=== PATIENT | male | born 1980 ===

== ENCOUNTER 2021-12-13 07:52 | Observation (INO) ==
--- NOTE | 2021-12-06 13:40 | Anesthesiology Consultation ---
Date of Service December 06, 2021 Assessment & Plan (1) Encounter for pre-operative examination: Chart Review Chart Review: Acceptable Risk for Surgery History Surgery Operation Date: 12/13/21 10:40 Proposed Procedures p Right Ankle Open Reduction Internal Fixation with Lateral Malleolus Non Union, Possible Excision Right Knee Bone Graft - Cleve Norton MD Height/Weight Height: 5 ft 9 in Weight: 94.347 kg Allergies Allergy/AdvReac Type Severity Reaction Status Date / Time bee venom protein (honey bee) Allergy Unknown Verified 11/30/21 14:56 No Known Drug Allergies Allergy Verified 11/30/21 14:56 Medications Home Medications Medication Instructions Recorded Confirmed Last Taken calcium polycarbophil 625 mg 625 mg PO QAM 11/30/21 11/30/21 Unknown tablet (Fiber Laxative (calcium polycarbophil)) cholecalciferol (vitamin D3) 25 25 mcg PO QAM 11/30/21 11/30/21 Unknown mcg (1,000 unit) tablet (Vitamin D3) diclofenac sodium 100 mg 100 mg PO BID 11/30/21 11/30/21 Unknown tablet,extended release 24 hr cjtiylkg-sxnozmjbjlh-pzugk 1 applic topical QAM 11/30/21 11/30/21 Unknown petrolatum topical cream (Cetaphil Moisturizing topical cream) naproxen 500 mg tablet 500 mg PO BID PRN Pain 11/30/21 11/30/21 Unknown paraben-cetyl alcohol-stearyl 1 applic topical QAM 11/30/21 11/30/21 Unknown alcohol-propy glycol-sls topical overhead cleaner maintainer (Cetaphil Gentle Cleanser topical cleanser) Past Medical History Medical History Ankle pain Constipation Dermatitis HCV (hepatitis C virus) Low back pain Past Surgical History Surgical History Surgical history unknown Social History Smoking Status: Unknown if ever smoked
[~2021-12-13 07:52] MED LIST: LACTATED RINGER'S 1,000 ML IV SCH; ceFAZolin 2000MG 2,000 MG/15 ML SYR IV SCH
[2021-12-13] MEDS ORDERED: ROPIVACAINE 0.5% 5 MG/ML 30 ML VIAL ONE (07:59)
[2021-12-13] MEDS ORDERED: MIDAZOLAM HCL 1 MG/ML 2ML VIAL ONE ×2 (09:20)
[2021-12-13] MEDS ORDERED: fentaNYL citrate 100 MCG/2 ML VIAL ONE ×2 (09:20→10:48)
[2021-12-13] MEDS ORDERED: ATROPINE SULFATE 0.1 MG/ML 10ML SYR IV PRN (09:36)
[2021-12-13] MEDS ORDERED: ePHEDrine sulfate 50 MG/ML AMP IV PRN (09:36)
[2021-12-13] MEDS ORDERED: ONDANSETRON INJ 2 MG/ML 2 ML VIAL IV PRN ×2 (09:36→14:02)
--- NOTE | 2021-12-13 09:47 | History & Physical Bridge Note ---
Date of Service December 13, 2021 History & Physical Bridge Note I have examined the patient, reviewed the History & Physical and in the interval since the performance of the History & Physical I have noted the following changes of clinical significance: no changes noted
[2021-12-13] MEDS ORDERED: BUPIVACAINE 0.5 % 5 MG/1 ML MPF 30ML VIAL ONE (10:12)
[2021-12-13] MEDS ORDERED: LIDOCAINE 1%/EPINEPHRINE 1:100,000 50 ML VIAL ONE (10:13)
[2021-12-13] MEDS ORDERED: ONDANSETRON INJ 2 MG/ML 2 ML VIAL ONE (10:47)
[2021-12-13] MEDS ORDERED: PROPOFOL IV EMULSION 10 MG/ML 20 ML VIAL IV ONE (10:47)
[2021-12-13] MEDS ORDERED: DEXAMETHASONE SOD INJ 4 MG/ML VIAL ONE (10:47)
[2021-12-13] MEDS ORDERED: GELATIN SPONGE 12-7MM ONE (11:49)
--- NOTE | 2021-12-13 13:08 | Operative Report ---
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 Post-Op Diagnosis: same I identified the patient and participated in the time-out.: Yes Procedure Operation Date: 12/13/21 10:20 Actual Procedures p Right Ankle Open Reduction Internal Fixation Lateral Malleolus Non-Union(Righ t) - Cleve Norton MD s Autograft Right Iliac Crest(Right) - Cleve Norton MD Surgeon Cleve Norton MD Cathodic Protection Technician Monica Schmidt no resident or fellow available Estimated Blood Loss 20 Findings Consistent with Post-Op Diagnosis Specimens Debrided nonunion Anesthesia Type General Regional Complications none Disposition Accompanied Patient To Recovery: No Disposition: Recovery Room Indications Patient is 41. He is 1 year status post a right distal fibular Chairez a type fracture. The fracture is not healed. He is vitamin D deficient with a head which has been addressed. 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 He is elected to proceed with open reduction internal fixation with bone grafting. He has a nickel allergy and titanium implants will be used. Description of Procedure Informed consent obtained. Patient identified. He identified the operative site as the right ankle the right knee and the right iliac crest which I marked with my initials. A preoperative surgical timeout performed. A preop dose of IV antibiotics was given he was taken to the OR positioned supine on the OR table with a bump under the right hip. Bone foam under the right leg. The righ t lower extremity up to the lower abdomen was prepped and draped in usual sterile fashion. DVT prophylaxis with mechanical devices and postoperatively early mobility and aspirin. The leg was prescribed and prepped and draped in usual sterile fashion. A sterile tourniquet was applied below the peroneal nerve at the fibular neck. The limb was exsanguinated with the Esmarch and tourniquet inflated 250 mmHg. Fluoroscopic guidance was utilized throughout the case. A 10 cm incision over the distal fibula was made. Blunt dissection was performed proximally down to the level of the periosteum and then the periosteum was elevated only as much as necessary to apply the plate. At the site of the fracture nonunion which is readily identified is an area of softness at the distal fibula I exposed anterior and posterior to the margins of the bone and identified the peroneal tendons posteriorly. I debrided the nonunion with rongeur and curette. This yielded a defect which was measured initially at 5 to 6 mm wide about 20 to 25 mm anterior to posterior and had a depth of approximately 12 mm. It tapered down to a width of about 3 mm medially. I debrided back to what appeared to be healthy proximally and distally. I then took a 1.25 mm K wire and made multiple perforations proximally and distally in the nonunion site. The nonunion tissue which looked to be dense fibrous scar tissue was sent for pathology. There was no fluid or evidence of infection. The bone otherwise seem to be healthy. After debriding thoroughly and preparing the nonunion site the tourniquet was let down after about 30 minutes of inflation. There was good bleeding from all the bony surfaces except for the anterior one quarter of the distal fragment. I did not violate the medial cortex in order to leave the cartilage intact. Nonunion was stable and maintained its position even with the takedown of the fibrous union. I then made a 8 cm incision paralleling the iliac crest. Electrocautery was utilized down to the subcutaneous tissues down to the level of the iliac crest. The incision was made 2 to 3 cm posterior to the anterior superior iliac spine. I then opened the periosteum and expose the iliac crest. There was a wider portion posteriorly which was about 15 mm wide. I then took a wedge shaped tricortical graft. It was harvested with a saw and finished with an osteotome. This wound was then packed with a Gelfoam and sponge. Later after obtaining meticulous hemostasis and irrigating it this wound was closed with interrupted #1 Vicryl at the level of the fascia followed by 0 Vicryl's for the fat layer 2- 0 Vicryl's and sissy on the skin. A soft sterile dressing was applied Xeroform 4 x 4's gauze and foam tape. This area was injected with 1% plain lidocaine and half percent Marcaine with epinephrine for analgesia. The graft was taken to the back table where it was measured. It was 5 mm wide laterally and 15 mm anterior to posterior. I trimmed the graft on its deep surface so that it fit flush with the fibula. The graft was placed in and it was situated flush with the posterior cortex which left about 5 to 7 mm of anterior bone uncovered. At the end of the procedure this was then packed with morselized autograft from the graft trimming. I then took the hook plate and applied it to the distal fibula. I Almazan to the proper shape. I then took a bone tamp and sunk the hooks into the distal fragment. Care was taken to make sure that these were not intra-articular which they were not. I then took a 3.5 mm bicortical lag screw and inserted it proximally giving good compression. I then inserted a 4.0 cancellous screw in the next hole down in the compression mode as well. This provided good secure stability to the graft and applied compression across the nonunion site. The bone graft was packed and as mentioned previously. The fibula remained anatomically aligned. Meticulous hemostasis and irrigation was performed. Irrigation. I then closed the periosteum over the plate using 0 Vicryl. The skin was then closed with 3-0 Vicryl and sissy. He had a nerve block so no injection was done distally. The legs cleaned wet and dry sponges. Soft roll dressing was applied Xeroform 4 x 4's soft wrap posterior splint ankle neutral Camilo wrap. Patient then awakened from anesthesia without difficulty and taken to the cart room in stable condition. There were no complications. The resected nonunion was sent for specimen. Counts were correct and blood loss is estimated to be 20 cc. There was no one available to speak to at the conclusion the operation. Plan is postop IV antibiotics pain control and nonweightbearing on the right lower extremity. I attest to the content of the Intraoperative Record and any orders documented therein. Any exceptions are noted below.
--- NOTE | 2021-12-13 13:12 | Operative Report ---
Post Operative Report Pre & Post Diagnosis Operation Date: 12/13/21 10:20 Pre-Op Diagnosis: Displaced fracture lateral malleolus right fibula. Post-Op Diagnosis: Displaced fracture lateral malleolus right fibula. I identified the patient and participated in the time-out.: Yes Procedure Operation Date: 12/13/21 10:20 Actual Procedures p Right Ankle Open Reduction Internal Fixation Lateral Malleolus Non- Union(Right) - Cleve Norton MD s Autograft Right Iliac Crest(Right) - Cleve Norton MD Surgeon Cleve Norton M.D. Human Resources Advisor Monica Schmidt PA-C Estimated Blood Loss 20 Findings Consistent with Post-Op Diagnosis Specimens nonunion right fibula site Anesthesia Type General Regional Description of Procedure Patient was taken to the operating room, placed under general anesthesia, time out performed, prepped and draped in routine sterile fashion. He was given 2gm IV Ancef for surgical prophylaxis. I was present during the entire case, please see Dr. Norton's operative report for further detail. Patient was awakened and taken to the recovery room in stable condition. I attest to the content of the Intraoperative Record and any orders documented therein. Any exceptions are noted below.
--- NOTE | 2021-12-13 13:21 | Fluoroscopy Report ---
FL ankle RT min 3V RTN HISTORY: 41 years-old Male RT ORIF status post ORIF of the right distal fibula COMPARISON: Right ankle radiographs 07/18/2021 TECHNIQUE: 3 spot fluoroscopic images of the right ankle were obtained utilizing 13.9 seconds fluoros copy time FINDINGS: Status post ORIF of the distal fibular fracture which now demonstrates near-anatomic alignment. The h ardware appears intact. Mild marginal spurring of the tibiotalar joint. No unexpected opaque foreign bodies. Expected postoperative soft tissue swelling with deep tissue air. IMPRESSION: Fluoroscopic assistance as above. ACT 112: Negative or not required by law. The above report was generated using voice recognition software. It may contain grammatical, syntax o r spelling errors. Electronically signed by: Tom Mejía M.D. 12/13/2021 1:19 PM
[2021-12-13] MEDS: fentaNYL citrate 100 MCG/2 ML VIAL IV PRN ×2 (13:23→13:28)
--- NOTE | 2021-12-13 13:38 | Anesthesiology Progress Note ---
Date of Service December 13, 2021 Anesthesia Post Procedure Vital Signs Vital Signs: Temp Pulse Resp BP Pulse Ox O2 Del Method O2 Flow Rate 12/13/21 13:35 83 14 131/77 96 Room Air 12/13/21 13:25 71 12 150/70 H 100 Oxymask 4 12/13/21 13:15 83 12 164/86 H 99 Oxymask 8 12/13/21 13:07 97.3 F L 92 H 14 114/76 97 Oxymask 8 12/13/21 08:25 98.2 F 78 18 161/100 H 96 Room Air Pain Intensity Right Ankle: Pain Intensity: 4 Right Hip: Pain Intensity: 4 Transfer of Care Handoff Completed per policy Notes Mental Status: alert / awake / arousable and participated in evaluation Patient Amnestic to Procedure: Yes Nausea / Vomiting: adequately controlled Pain: adequately controlled Airway Patency, RR, SpO2: stable & adequate BP & HR: stable & adequate Hydration State: stable & adequate Anesthetic Complications: no major complications apparent and Pt Satisfied with anesthetic care
[2021-12-13] MEDS ORDERED: HYDROmorphone INJ 0.5 MG/0.5 ML SYR IV PRN (14:02)
[2021-12-13] MEDS ORDERED: NALOXONE HCL 0.4 MG/1 ML VIAL/CARP IV PRN (14:02)
[2021-12-13] MEDS ORDERED: bisacodyL 10 MG SUPP PR PRN (14:02)
[2021-12-13] MEDS ORDERED: diphenhydrAMINE Capsule 25 MG CAP PO PRN (14:02)
[2021-12-13] MEDS ORDERED: MAGNESIUM HYDROXIDE SUSP 30 ML UDC PO PRN (14:02)
[2021-12-13] MEDS ORDERED: METOCLOPRAMIDE HCL INJ 5 MG/ML 2 ML VIAL IV PRN (14:02)
[2021-12-13] MEDS ORDERED: TAMSULOSIN HCL 0.4 MG CAP PO PRN (14:02)
[2021-12-13] MEDS ORDERED: diphenhydrAMINE 50 MG/ML VIAL IV PRN (14:02)
[2021-12-13] MEDS: SODIUM CHLORIDE 0.9% 1000ML 1,000 ML IV SCH (14:37)
[2021-12-13] MEDS: ACETAMINOPHEN 500 MG TAB PO SCH ×2 (14:44→21:01)
[2021-12-13] MEDS: oxyCODONE HCL IR 5 MG TAB (IMMEDIATE RELEASE) PO PRN ×2 (14:44→18:19)
[2021-12-13] MEDS: HYDROmorphone INJ 1 MG/ML SYRINGE IV PRN ×2 (16:13→21:00)
[2021-12-13] MEDS: ceFAZolin 2000MG 2,000 MG/15 ML SYR IV SCH (18:45)
[2021-12-13] MEDS: DOCUSATE SODIUM 100 MG CAP PO SCH (21:01)
[2021-12-13] MEDS: ASPIRIN 325 MG ECTAB PO SCH (21:01)
[2021-12-13] MEDS: SENNA 8.6 MG TAB PO SCH (21:01)
[2021-12-14] MEDS: SODIUM CHLORIDE 0.9% 1000ML 1,000 ML IV SCH (00:12)
[2021-12-14] MEDS: oxyCODONE HCL IR 5 MG TAB (IMMEDIATE RELEASE) PO PRN ×4 (00:17→16:02)
[2021-12-14] MEDS: ceFAZolin 2000MG 2,000 MG/15 ML SYR IV SCH (03:11)
[2021-12-14] MEDS: ACETAMINOPHEN 500 MG TAB PO SCH ×3 (05:46→21:21)
[2021-12-14] MEDS: ASPIRIN 325 MG ECTAB PO SCH (08:53)
[2021-12-14] MEDS: DOCUSATE SODIUM 100 MG CAP PO SCH ×2 (08:53→21:21)
[2021-12-14] MEDS: CHOLECALCIFEROL 1,000 UNITS 25 MCG TAB PO SCH (08:54)
[2021-12-14] MEDS: MULTIVITAMIN TAB PO SCH (08:54)
[2021-12-14] MEDS ORDERED: [UNRECOGNIZED DRUG - OTHER] TOP SCH (09:00)
[2021-12-14] MEDS ORDERED: KETOROLAC 30 MG/ML VIAL IV PRN (09:14)
[2021-12-14] MEDS ORDERED: ERGOCALCIFEROL 50,000 UNITS 1250 MCG CAP PO SCH (09:15)
--- NOTE | 2021-12-14 10:55 | Progress Notes ---
DATE OF SERVICE: 12/14/2021. Resting comfortably in bed. Right hip pain. The right leg remains numb, but seems to be improving. He is afebrile. His vital signs are stable. Pain is reasonably well controlled. Vitamin D level w as 21.5 and will be replaced. On exam, trace DP pulse. Capillary refill less than 2 seconds. Toes are warm, numb on the top, but getting some feeling back on the bottom. No active movement of the to es at this point, but he is able to lift his leg and bend his knee. Dressings are clean, dry, and in tact. ORIF of a right distal fibular nonunion with iliac crest bone graft. Nonweightbearing on the right leg. Replace vitamin D. DVT prophylaxis with mechanical devices and a spirin. PT/OT. Pain control. Job ID: [id number]
[2021-12-14] MEDS: SENNA 8.6 MG TAB PO SCH (21:21)
[2021-12-14] MEDS: ASPIRIN 81 MG ECTAB PO SCH (21:21)
[2021-12-15] MEDS: oxyCODONE HCL IR 5 MG TAB (IMMEDIATE RELEASE) PO PRN ×4 (06:09→19:41)
[2021-12-15] MEDS: ACETAMINOPHEN 500 MG TAB PO SCH ×3 (06:09→22:02)
[2021-12-15] MEDS: DOCUSATE SODIUM 100 MG CAP PO SCH ×2 (09:21→19:43)
[2021-12-15] MEDS: ASPIRIN 81 MG ECTAB PO SCH ×2 (09:21→19:43)
[2021-12-15] MEDS: CHOLECALCIFEROL 1,000 UNITS 25 MCG TAB PO SCH (09:21)
[2021-12-15] MEDS: MULTIVITAMIN TAB PO SCH (09:21)
--- NOTE | 2021-12-15 11:15 | Orthopedic Progress Note ---
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 Norton on 12/13/21. Recommend OOB with assistance of a walker or crutches. Needs to be NWB RLE at all times. Keep splint on right leg at all times, keep it clean and dry. Ice and elevation right hip and ankle as needed for pain/swelling. Allowed for full ROM right hip and knee as tolerated. Keep hip incision covered, may redress as needed. Pain medication as prescribed ASA 81mg BID for 30 days after surgery for DVT prophylaxis. Will plan for discharge back to facility tomorrow. Will keep here today for continued pain control/management. Contimue OOB with PT/OT. Dr. Norton present for today's visit. Will re-assess tomorrow. (2) Vitamin D deficiency: Plan: Supplemented with Vitamin D2 50,000 units every 7 days. Will continue this for 6 weeks, then will recheck Vitamin D level. Admission and Anticipated Discharge Date Admission Date: December 13, 2021 Subjective patient doing well today, walked around in room with walker and with physical therapy. States that his hip feels better today, but having more pain in his right ankle. He's concerned about getting adequate pain control when back at his facility. Denies numbness or tingling in right lower extremity. States that he does sometimes get some radiation or pain or burning into the right side of his abdomen/groin area. Tolerating regular diet. No nausea, vomiting, chest pain or shortness of breath. Physical Exam Musculoskeletal: Splint and dressings clean, dry and intact right ankle. Right hip incision clean, dry and intact. Dressings changed today. Mild ecchymosis surrounding hip incision, but no active drainage or evidence of hematoma or seroma. Full toe strength and ROM. Distal sensation normal. cap refill brisk. Right foot elevated on 2 pillows. Tolerates ROM of right hip and right knee. Dressings left alone on right ankle. Results & Data ([facility]) Vital Signs (Past 12 Hours) Vital Signs Temp Pulse Resp BP Pulse Ox O2 Del Method 12/15/21 06:01 36.5 C 60 16 122/81 95 Room Air
[2021-12-15] MEDS: SENNA 8.6 MG TAB PO SCH (19:43)
[2021-12-16] MEDS: oxyCODONE HCL IR 5 MG TAB (IMMEDIATE RELEASE) PO PRN ×3 (04:07→12:24)
[2021-12-16] MEDS: ACETAMINOPHEN 500 MG TAB PO SCH (05:19)
[2021-12-16] MEDS: DOCUSATE SODIUM 100 MG CAP PO SCH (08:08)
[2021-12-16] MEDS: MULTIVITAMIN TAB PO SCH (08:16)
[2021-12-16] MEDS: ASPIRIN 81 MG ECTAB PO SCH (08:16)
[2021-12-16] MEDS: CHOLECALCIFEROL 1,000 UNITS 25 MCG TAB PO SCH (08:16)
--- NOTE | 2021-12-16 09:23 | Orthopedic Progress Note ---
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 Norton on 12/13/21. Recommend OOB with assistance of a walker or crutches. Needs to be NWB RLE at all times. Keep splint on right leg at all times, keep it clean and dry. Ice and elevation right hip and ankle as needed for pain/swelling. Allowed for full ROM right hip and knee as tolerated. Keep hip incision covered, may redress as needed. Okay to shower today if able. Pain medication as prescribed ASA 81mg BID for 30 days after surgery for DVT prophylaxis. Continue OOB with PT/OT. Dr. Norton will be notified of today's findings. Doctor to Doctor sign out will be initiated by Dr. Norton from the office. Plan for discharge today and follow up as scheduled as an outpatient. (2) Vitamin D deficiency: Plan: Supplemented with Vitamin D2 50,000 units every 7 days. Will continue this for 6 weeks, then will recheck Vitamin D level. Admission and Anticipated Discharge Date Admission Date: December 13, 2021 Subjective Patient states doing much better today . Still has some burning in the outer aspect of his ankle, but contributes that to sleeping with his "leg rolled out". Splint comfortable. Denies numbness or tingling in his right foot or leg. Continues to have some groin pain into his right testicle. No blood in his urine, no decreased sensation. Denies any pain at the hip surgical site. He's been ambulating in his room with a walker. He refused PT yesterday because he was having multiple BM's after medication for constipation and felt that he had enough "PT" just getting up to go to the bathroom multiple times. He's concerned about going back to his facility because he doesn't have confidence that they will do what they are supposed to do. Tolerating regular diet. No nausea, vomiting, chest pain or shortness of breath. Physical Exam Musculoskeletal: dressing on right hip is clean, dry and intact. Not changed today, no surrounding hematoma or seroma, mildly tender to palpation. Right hip splint and dressings clean, dry and intact. Toes move well, normal sensation. Results & Data ([facility]) Vital Signs (Past 12 Hours) Vital Signs Temp Pulse Resp BP Pulse Ox O2 Del Method 12/16/21 07:45 36.5 C 62 16 121/76 94 Room Air 12/15/21 22:51 36.9 C 59 L 16 108/58 L 92 Room Air
--- NOTE | 2021-12-16 09:58 | Discharge Summary ---
Date of Service December 16, 2021 Discharge Data Procedures Performed Operation Date: 12/13/21 10:20 Actual Procedures p Right Ankle Open Reduction Internal Fixation Lateral Malleolus Non- Union(Right) - MD joe Berman Autograft Right Iliac Crest(Right) - Cleve Norton MD Hospital Course (1) Vitamin D deficiency: Vitamin D level was tested on postoperative day 1. He was found to be vitamin D deficient. He was started on vitamin D supplementation 50,000 international units q. weekly. His first dose was given on December 14, 2021. This will be continued for 6 weeks postoperatively. We will then retest his vitamin D level. He understands and agrees. 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 Surgery was performed on December 13, [address] Norton. His surgery was performed with general anesthesia and peripheral nerve block. He tolerated the surgery well without any intraoperative complications. Postoperatively he was allowed out of bed, nonweightbearing right lower extremity with the assistance of walker, crutches or wheelchair. His right leg was placed in a posterior short leg splint for stabilization of his fracture with postoperative dressing on the right hip. He was given oral Tylenol, Toradol, oxycodone and IV Dilaudid as needed for pain medication. His pain was well controlled from postoperative day 2-3 on oral pain medication. He was started on vitamin D on December 14, 2021. He was placed on aspirin 81 mg p.o. twice daily for DVT prophylaxis which will continue for 4 to 6 weeks after surgery. His postoperative dressing was changed on his right hip on postoperative day 2, December 15, 2021 and showed an intact incision and a new waterproof dressing was placed to his right hip. He tolerated regular diet during his inpatient stay. He did not develop any postoperative nausea, vomiting, chest pain or shortness of breath. He did have some feelings of constipation on postoperative day 2 and was given Colace, Maalox and about knee cocktail. He then had bowel movements on and off throughout the day. He was seen evaluated by physical therapy and Occupational Therapy and he did well and was safe out of bed. He maintained the nonweightbearing adequately. He was encouraged to ice and elevate his right ankle and hip as needed. He did develop some right groin burning and discomfort which is suspected referred pain from his iliac crest bone graft. He was seen by case management for disposition needs. A PA to PA signout was performed. On postoperative day 3 he was deemed stable for discharge and was discharged back to [facility] in stable condition. Discharge instructions were reviewed. He will follow-up as scheduled. He understands and agrees with the plan.
== END 2021-12-16 14:50 ==
LOC: 3E 07:52 → ASU 07:52